=== PATIENT | male | born 1985 | race Caucasian/White ===

== ENCOUNTER 2019-02-22 19:33 | Inpatient (IN) | payer MEDICAID, OTHER ==
[~2019-02-22] VITALS: Ht 182.9 cm; Wt 78.5 kg
[2019-02-22] MEDS ORDERED: APIXABAN 5 MG TABLET PO STA (19:50)
[2019-02-22] MEDS ORDERED: HYDROCODONE/ACETAMINOPHEN 5/325MG TABLET PO STA (19:50)
[2019-02-22] MEDS ORDERED: NITROGLYCERIN OINT 1GM/INCH UDPKT TD ONE (20:00)
[2019-02-22] MEDS ORDERED: ASPIRIN 81MG TABLET PO ONE (20:00)
[2019-02-22 20:48] LABS: CLARITY URINE CLEAR (CLEAR); COLOR URINE YELLOW (YELLOW); KETONES URINE NEGATIVE (NEGATIVE); LEUKOCYTE ESTERASE URINE NEGATIVE (NEGATIVE); NITRITE URINE NEGATIVE (NEGATIVE); OCCULT BLOOD URINE NEGATIVE (NEGATIVE); PH URINE 7.5 (4.5-8.0); PROTEIN URINE NEGATIVE (NEGATIVE); SPECIFIC GRAVITY URINE 1.004 (1.005-1.030); UROBILINOGEN URINE 0.2 E.U./dL (0.2-1.0)
[2019-02-22 21:00] LABS: *AMPHETAMINES SCREEN URINE NEGATIVE (NEGATIVE); *BARBITURATES SCREEN URINE NEGATIVE (NEGATIVE)
[2019-02-22 21:01] LABS: *BENZODIAZEPINES SCREEN URINE NEGATIVE (NEGATIVE); *COCAINE SCREEN URINE NEGATIVE (NEGATIVE); CANNABINOID URINE SCREEN NEGATIVE (NEGATIVE); METHADONE URINE SCREEN NEGATIVE (NEGATIVE); OPIATES URINE SCREEN PRESUMTIVE POSITIVE (NEGATIVE); PHENCYCLIDINE URINE SCREEN NEGATIVE (NEGATIVE)
[2019-02-22 21:02] LABS: BASOPHILS % 1.1 % (0.0-2.0); HEMATOCRIT. 30.4 % (42.0-52.0); LYMPHOCYTES % 19.7 % (20.0-50.0); MEAN CORPUSCULAR HEMOGLOBIN 27.1 pg (28.0-32.0); MEAN CORPUSCULAR VOLUME 82.9 fL (80.0-94.0); MEAN PLATELET VOLUME 8.8 fl (7.4-10.4); MONOCYTES % 12.2 % (2.0-8.0); PLATELET 135 x1000/uL (130-400); RED BLOOD CELL COUNT 3.67 mill/uL (4.7-6.1); RED CELL DISTRIBUTION WIDTH 17.1 % (11.6-14.6)
[2019-02-22 21:03] LABS: CHLORIDE 103 mEq/L (98-107)
[2019-02-22 21:07] LABS: INR 1.2; PARTIAL THROMBOPLASTIN TIME 28.1 sec (23.4-31.0); PROTHROMBIN TIME 12.3 sec (9.6-11.0)
[2019-02-22 21:08] LABS: ETHANOL BLOOD < 10 mg/dL
[2019-02-22] MEDS ORDERED: DOCUSATE SODIUM 100MG CAPSULE PO PRN (21:45)
[2019-02-22] MEDS ORDERED: GUAIFENESIN 200MG/10ML SUGAR FREE UDC PO PRN (21:45)
[2019-02-22] MEDS ORDERED: ZOLPIDEM TARTRATE 5MG TABLET PO PRN (21:45)
[2019-02-22] MEDS ORDERED: LORAZEPAM 2MG/ML CPJ IV PRN (21:45)
[2019-02-22] MEDS ORDERED: MAGNESIUM/ALUMINUM HYDROXIDE/SIMETHICONE 30ML UDC PO PRN (21:45)
[2019-02-22] MEDS ORDERED: ACETAMINOPHEN 325MG TABLET PO PRN (21:45)
[2019-02-22] MEDS ORDERED: KETOROLAC 15MG/ML VIAL IV PRN (21:45)
[2019-02-22] MEDS ORDERED: NITROGLYCERIN 0.4MG TABLET SL SL PRN (21:45)
[2019-02-22] MEDS ORDERED: CLONIDINE 0.1MG TABLET PO PRN (21:45)
[2019-02-22] MEDS ORDERED: IPRATROPIUM/ALBUTEROL 0.5-3(2.5)MG/3ML NEB INH PRN (21:45)
[2019-02-22] MEDS ORDERED: ONDANSETRON HCL 4MG/2ML INJ IV PRN (21:45)
[2019-02-22 22:14] LABS: LDL CHOLESTEROL 67 mg/dL (5-100)
[2019-02-22 22:15] LABS: HDL CHOLESTEROL 55 mg/dL (40-59)
[2019-02-22 22:16] LABS: T4 FREE 0.22 ng/dL (0.76-1.46)
[2019-02-22] MEDS ORDERED: VALPROIC ACID 250MG CAPSULE PO NR (23:00)
[2019-02-22 23:36] LABS: TOTAL IRON BINDING CAPACITY 471 ug/dL (250-450)
[2019-02-22 23:50] LABS: FOLIC ACID (FOLATE) SERUM 7.4 ng/mL (>5.38)
[2019-02-23 00:06] LABS: CREATINE KINASE MB FRACTION 1.1 ng/mL (0.5-3.6)
[2019-02-23 05:28] VITALS: BP 142/71
[2019-02-23 05:31] VITALS: BP 142/71
[2019-02-23] MEDS ORDERED: VALPROIC ACID 250MG CAPSULE PO SCH (06:00)
[2019-02-23] MEDS ORDERED: LEVOTHYROXINE SODIUM 75MCG TABLET PO SCH (07:20)
[2019-02-23] MEDS ORDERED: METOPROLOL TARTRATE 25MG TABLET PO SCH (09:00)
[2019-02-23] MEDS ORDERED: ASPIRIN 81MG EC TABLET PO SCH (09:00)
[2019-02-23] MEDS ORDERED: ENOXAPARIN 40MG/0.4ML SYR SUBCUT SCH (09:00)
[2019-02-23] MEDS ORDERED: FAMOTIDINE 20MG TABLET PO SCH (09:00)
[2019-02-23 12:00] VITALS: BP 116/82
[2019-02-23 15:36] VITALS: BP 116/82
== END 2019-02-23 17:34 | disposition home or self-care (01) | DRG 198 ==
LOC: ER 19:33 → 6WST 21:10 → EDBEDREQ 21:19 → EDBEDREQTM 21:19 → ENRESERV 02-23 02:41
PROVIDERS: ADMIT Internal Medicine; ATTEND Internal Medicine
DX: R07.89 Other chest pain (principal); I25.2 Old myocardial infarction; I27.20 Pulmonary hypertension, unspecified; D63.8 Anemia in other chronic diseases classified elsewhere; E03.9 Hypothyroidism, unspecified; E11.9 Type 2 diabetes mellitus without complications; G40.909 Epilepsy, unspecified, not intractable, without status epilepticus; J45.909 Unspecified asthma, uncomplicated; I10 Essential (primary) hypertension; Z79.82 Long term (current) use of aspirin; Z86.73 Personal history of transient ischemic attack (TIA), and cerebral infarction without residual deficits; Z91.19 Patient's noncompliance with other medical treatment and regimen; Z95.2 Presence of prosthetic heart valve; Z95.5 Presence of coronary angioplasty implant and graft
CPT/HCPCS: 36415; 71045; 80061; 80305; 80320; 82550; 82553; 82607; 82746; 82962; 83036; 83540; 83550; 83880; 84439; 84443; 84484; 93005; 93970; 99285; J1650; G0480

== ENCOUNTER 2020-11-02 00:08 | Inpatient (IN) | payer MEDICAID ==
[~2020-11-02] VITALS: Ht 172.7 cm; Wt 74.8 kg
[2020-11-02] MEDS ORDERED: MORPHINE SULFATE 4 MG/ML CPJ (NOT FOR IM USE) IV STA (00:39)
[2020-11-02] MEDS ORDERED: ONDANSETRON HCL 4MG/2ML INJ IV STA (00:39)
[2020-11-02] MEDS ORDERED: NITROGLYCERIN OINT 1GM/INCH UDPKT TD ONE (00:45)
[2020-11-02 00:55] LABS: EOSINOPHILS % 4.9 % (0.0-5.0); HEMATOCRIT. 33.2 % (42.0-52.0); HEMOGLOBIN. 11.5 g/dL (14.0-18.0); LYMPHOCYTES % 24.2 % (20.0-50.0); MEAN CORPUSCULAR HEMOGLOBIN 31.2 pg (28.0-32.0); MEAN CORPUSCULAR VOLUME 90.2 fL (80.0-94.0); MEAN PLATELET VOLUME 9.4 fl (7.4-10.4); MONOCYTES % 9.6 % (2.0-8.0); NEUTROPHILS % 59.3 % (40.0-76.0); PLATELET 121 x1000/uL (130-400); RED BLOOD CELL COUNT 3.68 mill/uL (4.7-6.1); RED CELL DISTRIBUTION WIDTH 15.9 % (11.6-14.6)
[2020-11-02 01:00] LABS: CHLORIDE 106 mEq/L (98-107)
[2020-11-02 01:16] LABS: INR 1.3; PROTHROMBIN TIME 13.4 sec (9.6-11.0)
[2020-11-02 01:50] LABS: *AMPHETAMINES SCREEN URINE NEGATIVE (NEGATIVE); *BARBITURATES SCREEN URINE NEGATIVE (NEGATIVE); *BENZODIAZEPINES SCREEN URINE NEGATIVE (NEGATIVE)
[2020-11-02 01:51] LABS: *COCAINE SCREEN URINE NEGATIVE (NEGATIVE); CANNABINOID URINE SCREEN NEGATIVE (NEGATIVE); METHADONE URINE SCREEN NEGATIVE (NEGATIVE); OPIATES URINE SCREEN PRESUMTIVE POSITIVE (NEGATIVE); PHENCYCLIDINE URINE SCREEN NEGATIVE (NEGATIVE)
[2020-11-02] MEDS: MORPHINE SULFATE 4 MG/ML CPJ (NOT FOR IM USE) IV PRN ×2 (05:27→10:20)
[2020-11-02 09:09] VITALS: BP 119/83
[2020-11-02 09:15] VITALS: BP 119/83
[2020-11-02] MEDS ORDERED: ATOR-2 PO (09:43)
[2020-11-02] MEDS ORDERED: CARV12.545 PO (09:43)
[2020-11-02] MEDS ORDERED: GABA-529 PO (09:44)
[2020-11-02] MEDS ORDERED: LEVO175T7 PO (09:46)
[2020-11-02] MEDS ORDERED: NITR0.4T49 SL (09:47)
[2020-11-02] MEDS ORDERED: PHEN50TA PO (09:48)
[2020-11-02] MEDS ORDERED: TRAZ-251 MT (09:50)
[2020-11-02] MEDS ORDERED: SERT20OR6 PO ×2 (09:50→09:52)
[2020-11-02] MEDS ORDERED: VALP250S5 PO (09:54)
[2020-11-02] MEDS ORDERED: WARF6TAB48 PO (09:55)
[2020-11-02 12:00] VITALS: BP 123/73
[2020-11-02] MEDS ORDERED: TRAMADOL 50MG TABLET PO PRN (12:15)
[2020-11-02] MEDS ORDERED: ACETAMINOPHEN 325MG TABLET PO PRN (12:15)
[2020-11-02] MEDS ORDERED: ONDANSETRON HCL 4MG/2ML INJ IV PRN (12:15)
[2020-11-02 20:00] VITALS: BP 101/55
[2020-11-03] VITALS: BP 116/64
[2020-11-03 04:00] VITALS: BP 114/67
[2020-11-03] MEDS ORDERED: LEVOTHYROXINE SODIUM 50MCG TABLET PO SCH (07:10)
[2020-11-03 09:12] VITALS: BP 125/87
== END 2020-11-03 11:43 | disposition home or self-care (01) | DRG 203 ==
LOC: ER 00:08 → 8WST 06:33 → ENRESERV 07:34
PROVIDERS: ADMIT Internal Medicine; ATTEND Internal Medicine
DX: M94.0 Chondrocostal junction syndrome [Tietze] (principal); D64.9 Anemia, unspecified; E03.9 Hypothyroidism, unspecified; E11.9 Type 2 diabetes mellitus without complications; F41.9 Anxiety disorder, unspecified; R07.89 Other chest pain; I25.2 Old myocardial infarction; G40.909 Epilepsy, unspecified, not intractable, without status epilepticus; I10 Essential (primary) hypertension; J45.909 Unspecified asthma, uncomplicated; Z76.5 Malingerer [conscious simulation]; Z86.73 Personal history of transient ischemic attack (TIA), and cerebral infarction without residual deficits; Z95.2 Presence of prosthetic heart valve; Z95.810 Presence of automatic (implantable) cardiac defibrillator; Z88.6 Allergy status to analgesic agent; Z88.8 Allergy status to other drugs, medicaments and biological substances
CPT/HCPCS: 36415; 71045; 80053; 80305; 83880; 84443; 84484; 85025; 93005; 93306; 99285; J2270; J2405

== ENCOUNTER 2020-11-06 17:21 | Emergency (ER) | payer MEDICAID ==
[~2020-11-06] VITALS: Ht 175.3 cm; Wt 73.0 kg
[~2020-11-06 17:21] MED LIST: ATOR-2 PO; CARV12.545 PO; GABA-529 PO; LEVO175T7 PO; NITR0.4T49 SL; PHEN50TA PO; SERT20OR6 PO; TRAZ-251 MT; VALP250S5 PO; WARF6TAB48 PO
[2020-11-06 18:27] LABS: BASOPHILS % 1.2 % (0.0-2.0); EOSINOPHILS % 3.8 % (0.0-5.0); HEMATOCRIT. 33.5 % (42.0-52.0); HEMOGLOBIN. 11.5 g/dL (14.0-18.0); LYMPHOCYTES % 23.7 % (20.0-50.0); MEAN CORPUSCULAR HEMOGLOBIN 31.3 pg (28.0-32.0); MEAN CORPUSCULAR VOLUME 91.1 fL (80.0-94.0); MONOCYTES % 11.3 % (2.0-8.0); PLATELET 132 x1000/uL (130-400); RED BLOOD CELL COUNT 3.67 mill/uL (4.7-6.1); RED CELL DISTRIBUTION WIDTH 14.9 % (11.6-14.6)
[2020-11-06] MEDS ORDERED: LORAZEPAM 0.5MG TABLET PO ONE (18:30)
[2020-11-06 18:33] LABS: CHLORIDE 104 mEq/L (98-107)
[2020-11-06 18:44] LABS: INR 1.7; PROTHROMBIN TIME 17.5 sec (9.6-11.0)
[2020-11-06 19:51] LABS: *AMPHETAMINES SCREEN URINE NEGATIVE (NEGATIVE); *BARBITURATES SCREEN URINE NEGATIVE (NEGATIVE); *BENZODIAZEPINES SCREEN URINE NEGATIVE (NEGATIVE); *COCAINE SCREEN URINE NEGATIVE (NEGATIVE); METHADONE URINE SCREEN NEGATIVE (NEGATIVE); OPIATES URINE SCREEN PRESUMTIVE POSITIVE (NEGATIVE)
[2020-11-06 19:52] LABS: CANNABINOID URINE SCREEN NEGATIVE (NEGATIVE); PHENCYCLIDINE URINE SCREEN NEGATIVE (NEGATIVE)
[2020-11-06 21:56] VITALS: BP 132/69
== END 2020-11-06 22:18 | disposition home or self-care (01) ==
LOC: ER 17:21
DX: R07.9 Chest pain, unspecified (principal); F11.10 Opioid abuse, uncomplicated; I11.9 Hypertensive heart disease without heart failure; E11.9 Type 2 diabetes mellitus without complications; I25.2 Old myocardial infarction; J45.909 Unspecified asthma, uncomplicated; R56.9 Unspecified convulsions; Z88.6 Allergy status to analgesic agent; Z86.73 Personal history of transient ischemic attack (TIA), and cerebral infarction without residual deficits; Z86.718 Personal history of other venous thrombosis and embolism
CPT/HCPCS: 36415; 71045; 80053; 80305; 84484; 85025; 85610; 93005; 99285; Z7610

== ENCOUNTER 2020-11-07 11:06 | Emergency (ER) | payer MEDICAID ==
[~2020-11-07] VITALS: Ht 175.3 cm; Wt 75.0 kg
[2020-11-07] MEDS: NITROGLYCERIN 0.4MG TABLET SL SL ONE ×2 (11:39→11:43)
[2020-11-07 11:51] LABS: BASOPHILS % 1.2 % (0.0-2.0); EOSINOPHILS % 3.2 % (0.0-5.0); HEMATOCRIT. 36.9 % (42.0-52.0); HEMOGLOBIN. 12.3 g/dL (14.0-18.0); LYMPHOCYTES % 22.4 % (20.0-50.0); MEAN CORPUSCULAR HEMOGLOBIN 30.8 pg (28.0-32.0); MEAN PLATELET VOLUME 9.1 fl (7.4-10.4); MONOCYTES % 12.1 % (2.0-8.0); NEUTROPHILS % 61.1 % (40.0-76.0); PLATELET 138 x1000/uL (130-400); RED BLOOD CELL COUNT 4.01 mill/uL (4.7-6.1); RED CELL DISTRIBUTION WIDTH 15.2 % (11.6-14.6)
[2020-11-07 11:54] LABS: CHLORIDE 106 mEq/L (98-107)
[2020-11-07 13:30] VITALS: BP 120/73
== END 2020-11-07 14:51 | disposition home or self-care (01) ==
LOC: ER 11:21
DX: R07.89 Other chest pain (principal); J45.909 Unspecified asthma, uncomplicated; E11.9 Type 2 diabetes mellitus without complications; I10 Essential (primary) hypertension; I25.2 Old myocardial infarction; Z86.73 Personal history of transient ischemic attack (TIA), and cerebral infarction without residual deficits; Z79.899 Other long term (current) drug therapy; Z88.6 Allergy status to analgesic agent
CPT/HCPCS: 36415; 71045; 80053; 83880; 84484; 85025; 93005; 99285

== ENCOUNTER 2021-06-27 18:23 | Emergency (ER) | payer MEDICAID ==
[~2021-06-27] VITALS: Ht 170.2 cm; Wt 91.0 kg
[2021-06-27 18:25] VITALS: BP 146/80
[2021-06-27 19:55] LABS: BASOPHILS % 1.2 % (0.0-2.0); EOSINOPHILS % 4.4 % (0.0-5.0); HEMOGLOBIN. 10.5 g/dL (14.0-18.0); LYMPHOCYTES % 33.1 % (20.0-50.0); MEAN CORPUSCULAR HEMOGLOBIN 27.9 pg (28.0-32.0); MEAN CORPUSCULAR VOLUME 85.4 fL (80.0-94.0); MONOCYTES % 10.7 % (2.0-8.0); NEUTROPHILS % 50.6 % (40.0-76.0); RED BLOOD CELL COUNT 3.75 mill/uL (4.7-6.1); RED CELL DISTRIBUTION WIDTH 15.7 % (11.6-14.6)
[2021-06-27 20:00] LABS: CHLORIDE 106 mEq/L (98-107)
== END 2021-06-27 22:53 | disposition left against medical advice (07) ==
LOC: ER 18:23
DX: Z53.21 Procedure and treatment not carried out due to patient leaving prior to being seen by health care provider (principal)
CPT/HCPCS: 36415; 80053; 84484; 85025; 93005

== ENCOUNTER 2022-10-07 16:16 | Emergency (ER) | payer MEDICAID ==
[~2022-10-07] VITALS: Ht 172.7 cm; Wt 64.0 kg
[2022-10-07 16:20] VITALS: BP 148/78
[2022-10-07] MEDS ORDERED: ASPIRIN 81MG TABLET PO ONE (16:30)
[2022-10-07] MEDS ORDERED: NITROGLYCERIN 0.4MG TABLET SL SL PRN (16:30)
== END 2022-10-07 17:08 | disposition home or self-care (01) ==
LOC: ER 16:16
DX: R07.9 Chest pain, unspecified (principal); E11.9 Type 2 diabetes mellitus without complications; I10 Essential (primary) hypertension; I95.9 Hypotension, unspecified; I69.354 Hemiplegia and hemiparesis following cerebral infarction affecting left non-dominant side; Z88.6 Allergy status to analgesic agent; Z88.8 Allergy status to other drugs, medicaments and biological substances; Z95.1 Presence of aortocoronary bypass graft; Z79.01 Long term (current) use of anticoagulants
CPT/HCPCS: 93005; 99283